=== PATIENT | female | born 1995 | race Caucasian/White ===

== ENCOUNTER 2024-10-27 20:18 | Emergency (ER) | payer OTHER ==
[~2024-10-27] VITALS: Ht 177.8 cm; Wt 68.2 kg
[2024-10-27 20:22] VITALS: BP 132/82; PULSE 82; RESP 18; TEMP 98.1; O2SAT 98
[2024-10-27] MEDS ORDERED: LAMO-24 PO (20:29)
[2024-10-27] MEDS: ONDANSETRON 4 MG TABLET PO ONE (22:59)
[2024-10-27] MEDS: FAMOTIDINE 20 MG TABLET PO ONE (22:59)
== END 2024-10-27 23:49 | disposition home or self-care (01) ==
LOC: EMS 20:18
DX: T18.128A Food in esophagus causing other injury, initial encounter (principal); F31.9 Bipolar disorder, unspecified; Z79.899 Other long term (current) drug therapy; W44.F3XA Food entering into or through a natural orifice, initial encounter
CPT/HCPCS: 99283; Q0162